=== PATIENT | female | born 2000 | race Caucasian/White ===

== ENCOUNTER 2022-05-04 18:07 | Emergency (ER) | payer OTHER ==
[2022-05-04 18:26] VITALS: BP 107/68; PULSE 66; RESP 17; TEMP 98.4; BMI 30.8
[2022-05-04 20:57] LABS: BASO % 0.3 % (0-2.0); EOS % 0.8 % (0-4.5); HEMATOCRIT 35.1 % (32.4-45.2); HEMOGLOBIN 11.5 GM/dL (10.7-15.3); LYMPH % 25.3 % (8-40); MCH 25.3 pg (25.7-33.7); MCHC 32.7 g/dl (32.0-36.0); MEAN CELL VOLUME 77.2 fl (80-96); MEAN PLT VOLUME 10.4 fl (7.5-11.1); MONO % 4.8 % (3.8-10.2); NEUT % 68.8 % (42.8-82.8); PLATELET COUNT 228 10^3/uL (134-434); RBC 4.55 M/mm3 (3.60-5.2); RDW 19.6 % (11.6-15.6); WHITE BLOOD COUNT 9.6 K/mm3 (4.0-10.0)
[2022-05-04 21:17] LABS: CALCIUM 9.7 mg/dL (8.5-10.1)
[2022-05-04 21:18] LABS: ALBUMIN 3.8 g/dl (3.4-5.0); BLOOD UREA NITROGEN 6.8 mg/dL (7-18)
[2022-05-04 21:21] LABS: CREATININE 0.6 mg/dL (0.55-1.3)
[2022-05-04 21:23] LABS: BILIRUBIN,TOTAL 0.4 mg/dL (0.2-1); TOT PROT 7.8 g/dl (6.4-8.2)
[2022-05-04 21:26] LABS: HCG,QUALITATIVE URINE Positive
[2022-05-04 21:29] LABS: EPI CELLS 20 /uL (0-25.1); HYALINE CASTS 1 /uL (0-3.1); URINE APPEARANCE CLEAR; URINE BACTERIA 201 /uL (0-1359); URINE BILIRUBIN NEGATIVE (NEGATIVE); URINE COLOR YELLOW; URINE GLUCOSE (UA) NEGATIVE (NEGATIVE); URINE KETONE NEGATIVE (NEGATIVE); URINE LEUK ESTERASE TRACE (NEGATIVE); URINE NITRITE NEGATIVE (NEGATIVE); URINE PROTEIN NEGATIVE (NEGATIVE); URINE RBC 17 /uL (0-23.9); URINE WBC 12 /uL (0-25.8)
== END 2022-05-04 23:42 | disposition home or self-care (01) ==
LOC: JER 18:07
DX: O20.9 Hemorrhage in early pregnancy, unspecified (principal); Z3A.10 10 weeks gestation of pregnancy
CPT/HCPCS: 36415; 76817-TC; 80053; 81003; 84702; 84703; 85025; 86850; 86900; 86901; 87086; 87491; 87591; 99284-25

== ENCOUNTER 2022-08-04 16:43 | Emergency (ER) | payer OTHER ==
[2022-08-04 16:57] VITALS: RESP 18; BMI 29.2
[2022-08-04] MEDS ORDERED: METOCLOPRAMIDE HCL INJECTION 10 MG/2 ML VIAL IVPB ONE (18:22)
[2022-08-04] MEDS ORDERED: ACETAMINOPHEN 1000 MG/100 ML BAG IVPB ONE (18:22)
[2022-08-04] MEDS ORDERED: ACETAMINOPHEN INJECTION 100 ML IVPB ONE (18:26)
[2022-08-04] MEDS ORDERED: METOCLOPRAMIDE HCL INJECTION 10 MG/2 ML VIAL ONE (18:26)
[2022-08-04] MEDS ORDERED: FAMOTIDINE 20 MG/50 ML IVPB 20 MG/50 ML MG IVPB ONE ×2 (19:23→19:26)
[2022-08-04 19:32] LABS: BASO % 0.2 % (0-2.0); HEMATOCRIT 34.9 % (32.4-45.2); HEMOGLOBIN 11.7 GM/dL (10.7-15.3); LYMPH % 22.3 % (8-40); MCH 28.6 pg (25.7-33.7); MCHC 33.5 g/dl (32.0-36.0); MEAN CELL VOLUME 85.3 fl (80-96); MEAN PLT VOLUME 9.9 fl (7.5-11.1); MONO % 3.7 % (3.8-10.2); NEUT % 72.8 % (42.8-82.8); PLATELET COUNT 193 10^3/uL (134-434); RDW 15.9 % (11.6-15.6); WHITE BLOOD COUNT 10.4 K/mm3 (4.0-10.0)
[2022-08-04 19:43] LABS: PH,URINE 5.5 (5.0-8.0); URINE APPEARANCE CLEAR; URINE BILIRUBIN NEGATIVE (NEGATIVE); URINE COLOR YELLOW; URINE GLUCOSE (UA) NEGATIVE (NEGATIVE); URINE KETONE NEGATIVE (NEGATIVE); URINE LEUK ESTERASE NEGATIVE (NEGATIVE); URINE NITRITE NEGATIVE (NEGATIVE); URINE PROTEIN NEGATIVE (NEGATIVE)
[2022-08-04 19:56] LABS: ALBUMIN 2.9 g/dl (3.4-5.0); BLOOD UREA NITROGEN 3.2 mg/dL (7-18); CALCIUM 8.6 mg/dL (8.5-10.1); MAGNESIUM 1.7 mg/dL (1.8-2.4)
[2022-08-04 20:00] LABS: CREATININE 0.4 mg/dL (0.55-1.3)
[2022-08-04 20:01] LABS: BILIRUBIN,TOTAL 0.5 mg/dL (0.2-1); TOT PROT 6.7 g/dl (6.4-8.2)
[2022-08-04 23:39] VITALS: BP 120/64; PULSE 74; TEMP 97.2
== END 2022-08-05 01:00 | disposition home or self-care (01) ==
LOC: JER 16:43
PROC: 3E0333Z Introduction of Anti-inflammatory into Peripheral Vein, Percutaneous Approach (ICD-10-PCS; principal; 2022-08-04)
PROC: 3E033GC Introduction of Other Therapeutic Substance into Peripheral Vein, Percutaneous Approach (ICD-10-PCS; 2022-08-04)
PROC: 3E033GC Introduction of Other Therapeutic Substance into Peripheral Vein, Percutaneous Approach (ICD-10-PCS; 2022-08-04)
DX: O21.9 Vomiting of pregnancy, unspecified (principal); O99.12 Other diseases of the blood and blood-forming organs and certain disorders involving the immune mechanism complicating childbirth; O26.892 Other specified pregnancy related conditions, second trimester; R19.7 Diarrhea, unspecified; R51.9 Headache, unspecified; Z3A.23 23 weeks gestation of pregnancy
CPT/HCPCS: 0241U-QW; 36415; 76705-TC; 80053; 81003; 83690; 83735; 84702; 85025; 87086; 99284-25

== ENCOUNTER 2022-11-24 08:40 | Inpatient (IN) | payer OTHER ==
[2022-11-24] MEDS ORDERED: ELECTROLYTE-148 SOLN 1,000 ML IV SCH (09:15)
[2022-11-24 09:57] VITALS: BMI 36.3
[2022-11-24] MEDS ORDERED: morphine SULFATE/PF 1 MG/2 ML (2cc Syringe - QUVA) ONE (10:22)
[2022-11-24] MEDS ORDERED: FENTANYL CITRATE/PF 50 MCG/ML VIAL ONE (10:23)
[2022-11-24] MEDS ORDERED: KETOROLAC TROMETHAMINE 30 MG/1 ML VIAL ONE (10:57)
[2022-11-24] MEDS ORDERED: ceFAZolin SODIUM 1 GM VIAL ONE (10:57)
[2022-11-24] MEDS ORDERED: ONDANSETRON 4 MG/2 ML VIAL ONE (10:57)
[2022-11-24] MEDS ORDERED: ONDANSETRON 4 MG/2 ML VIAL IVPUSH PRN (11:22)
[2022-11-24] MEDS ORDERED: morphine SULFATE/PF 1 MG/2 ML (2cc Syringe - QUVA) SPIN ONE (11:22)
[2022-11-24] MEDS ORDERED: ACETAMINOPHEN 1000 MG/100 ML BAG IVPB ONE (11:23)
[2022-11-24] MEDS ORDERED: ACETAMINOPHEN INJECTION 100 ML IVPB ONE (11:51)
[2022-11-24] MEDS ORDERED: OXYTOCIN 20 UNITS in 0.9% NS 20 UNIT/1,000 ML INFUS.BAG IV ONE (11:51)
[2022-11-24] MEDS ORDERED: ACETAMINOPHEN 325 MG TABLET (FP) PO PRN (13:59)
[2022-11-24] MEDS ORDERED: IBUPROFEN 800 MG/8 ML IJ IVPB PRN (13:59)
[2022-11-24] MEDS ORDERED: METHYLERGONOVINE MALEATE 0.2 MG/1 ML AMP IM PRN (13:59)
[2022-11-24] MEDS ORDERED: OXYTOCIN 20 UNITS in 0.9% NS 20 UNIT/1,000 ML INFUS.BAG IV SCH (14:00)
[2022-11-24] MEDS: FERROUS SO4 325 MG TABLET (FP) PO SCH (22:26)
[2022-11-24] MEDS: IBUPROFEN 600 MG TABLET (FP) PO PRN (22:31)
[2022-11-25] MEDS ORDERED: oxyCODONE HCL 5 MG TABLET PO PRN (02:00)
[2022-11-25] MEDS: SIMETHICONE 80 MG TAB.CHEW (FP) PO PRN ×3 (05:21→21:31)
[2022-11-25] MEDS: IBUPROFEN 600 MG TABLET (FP) PO PRN ×3 (05:21→21:31)
[2022-11-25 07:00] LABS: BASO % 0.4 % (0-2.0); EOS % 1.6 % (0-4.5); HEMATOCRIT 34.6 % (32.4-45.2); HEMOGLOBIN 11.8 GM/dL (10.7-15.3); LYMPH % 15.1 % (8-40); MCH 28.6 pg (25.7-33.7); MCHC 34.2 g/dl (32.0-36.0); MEAN CELL VOLUME 83.6 fl (80-96); MEAN PLT VOLUME 10.1 fl (7.5-11.1); MONO % 5.4 % (3.8-10.2); NEUT % 77.5 % (42.8-82.8); PLATELET COUNT 177 10^3/uL (134-434); RBC 4.14 M/mm3 (3.60-5.2); RDW 16.1 % (11.6-15.6); WHITE BLOOD COUNT 11.9 K/mm3 (4.0-10.0)
[2022-11-25] MEDS: FERROUS SO4 325 MG TABLET (FP) PO SCH ×2 (09:26→21:31)
[2022-11-25] MEDS: PRENATAL VITAMINS W/ FOLIC ACID TABLET (FP) PO SCH (09:26)
[2022-11-25] MEDS ORDERED: BISACODYL 10 MG SUPP.RECT RC PRN (14:00)
[2022-11-26] MEDS: IBUPROFEN 600 MG TABLET (FP) PO PRN ×2 (07:52→16:06)
[2022-11-26] MEDS: SIMETHICONE 80 MG TAB.CHEW (FP) PO PRN ×3 (07:52→20:14)
[2022-11-26] MEDS: PRENATAL VITAMINS W/ FOLIC ACID TABLET (FP) PO SCH (10:04)
[2022-11-26] MEDS: FERROUS SO4 325 MG TABLET (FP) PO SCH ×2 (10:04→21:36)
[2022-11-27 07:20] LABS: BASO % 0.4 % (0-2.0); EOS % 3.6 % (0-4.5); HEMATOCRIT 32.5 % (32.4-45.2); HEMOGLOBIN 11.5 GM/dL (10.7-15.3); LYMPH % 29.4 % (8-40); MCH 29.6 pg (25.7-33.7); MCHC 35.5 g/dl (32.0-36.0); MEAN CELL VOLUME 83.2 fl (80-96); MEAN PLT VOLUME 10.1 fl (7.5-11.1); MONO % 5.9 % (3.8-10.2); NEUT % 60.7 % (42.8-82.8); PLATELET COUNT 193 10^3/uL (134-434); RBC 3.91 M/mm3 (3.60-5.2); WHITE BLOOD COUNT 8.3 K/mm3 (4.0-10.0)
[2022-11-27] MEDS: PRENATAL VITAMINS W/ FOLIC ACID TABLET (FP) PO SCH (09:54)
[2022-11-27] MEDS: FERROUS SO4 325 MG TABLET (FP) PO SCH (09:54)
[2022-11-27] MEDS: IBUPROFEN 600 MG TABLET (FP) PO PRN (09:55)
[2022-11-27 12:26] VITALS: BP 118/70; PULSE 74; RESP 20; TEMP 98.5
== END 2022-11-27 12:25 | disposition home or self-care (01) | DRG 540 ==
LOC: JLDR 08:40 → J3W 12:25
PROVIDERS: ADMIT Obstetrics & Gynecology; ATTEND Obstetrics & Gynecology
PROC: 10D00Z1 Extraction of Products of Conception, Low, Open Approach (ICD-10-PCS; principal; 2022-11-24)
DX: O34.211 Maternal care for low transverse scar from previous cesarean delivery (principal); N85.8 Other specified noninflammatory disorders of uterus; Z3A.39 39 weeks gestation of pregnancy; Z37.0 Single live birth
CPT/HCPCS: 36415; 80053; 85025; 85610; 86780; 86850; 86900; 86901; 88307-TC; 94010; C9803-CS; U0003; U0005